=== PATIENT | male | born 2000 | race Caucasian/White ===

== ENCOUNTER 2024-06-29 16:18 | Observation (INO) ==
--- NOTE | 2024-06-29 17:22 | XRay Report ---
Chest radiograph, one view History: Chest pain Comparison: 02/22/2023 Findings: Single AP view of the chest performed. No focal consolidation or pleural effusion. No pneumothorax. The cardiomediastinal silhouette is within normal limits. Normal pulmonary vascularity. No evidence for lymphadenopathy. No visualized bony or soft tissue abnormality. Impression: Normal chest radiograph Electronically signed by Aneesh Weiss 06-29-2024 5:22 PM
[2024-06-29 18:23] LABS: Basophils # (auto) 0.02 K/uL (0.00-0.20); Basophils % (auto) 0.3 %; Eosinophils # (auto) 0.08 K/uL (0.00-0.50); Eosinophils % (auto) 1.2 %; Hemoglobin 17.6 g/dl (14.0-18.0); Immature Granulocytes # (auto) 0.02 K/uL (0.01-0.20); Immature Granulocytes % (auto) 0.3 %; Lymphocytes # (auto) 1.43 K/uL (1.20-3.40); Lymphocytes % (auto) 21.6 %; Mean Corpuscular Hemoglobin 28.8 pg (25.0-34.0); Mean Corpuscular Hgb Conc 34.5 g/dL (32.0-36.0); Mean Corpuscular Volume 83.3 fL (80.0-100.0); Mean Platelet Volume 10.4 fL (9.4-12.4); Monocytes % (auto) 6.1 %; Neutrophils # (auto) 4.66 K/uL (1.40-6.50); Neutrophils % (auto) 70.5 %; Platelet Count 285 K/uL (130-400); RDW Coefficient of Variation 12.6 % (11.5-14.5); RDW Standard Deviation 38.3 fL (36.4-46.3); Red Blood Count 6.12 M/uL (4.70-6.10); White Blood Count 6.61 K/ul (4.8-10.8)
[2024-06-29 18:34] LABS: Albumin Globulin Ratio 1.6 (0.9-2); Albumin Level 5.1 gm/dl (3.4-5.0); BUN Creatinine Ratio 9.6 (10-20); Bilirubin,Total 0.8 mg/dl (0.2-1.0); Calcium 9.7 mg/dl (8.6-10.3); Creatinine Clr Calc Pharmacy 133.7 ml/min; Globulin 3.2 gm/dl (2.5-4.0); Potassium 3.8 mmol/L (3.5-5.1); Total Protein 8.3 gm/dl (6.0-8.3)
[2024-06-29 18:47] LABS: D Dimer 380 ug/L FEU (0-500)
[2024-06-29 19:18] LABS: Troponin I High Sensitivity 29.8 pg/ml (0-20)
--- NOTE | 2024-06-29 19:52 | Emergency Department Note ---
History of Present Illness General Chief Complaint: Illness Stated Complaint: CHEST PAIN Time Seen by Provider: 06/29/24 17:29 History of Present Illness Provider Complaint: shortness of breath and chest pain Onset (ago): day(s) (2) Severity: moderate Consistency/Duration: + intermittent Relieved By: + nothing Exacerbated By: + inspiration Context: no recent illness, no allergen exposure, no recent travel or no trauma/injury Associated symptoms: no cough, no wheezing, no sputum production, no palpitations, no hemoptysis, no nausea/vomiting or no chest congestion HPI Narrative: Patient reports he had a similar episode that occurred in 2022 and was told that his troponin test was elevated. Home Medications Medication Instructions Recorded Confirmed Type albuterol sulfate 90 mcg/actuation 2 puff inhalation . EVERY 4 TO 6 06/29/24 06/29/24 History aerosol inhaler HOURS PRN Shortness Of Breath Or Wheezing multivitamin 1 tab PO QAM 06/29/24 06/29/24 History Allergies Allergy/AdvReac Type Severity Reaction Status Date / Time ibuprofen [From Motrin] AdvReac Mild LIQUID Verified 06/29/24 19:37 FORM-VOMITING Past Med/Surg History Problem List (Updated 06/29/24 @ 21:33 by Daniele Patel MD) Elevated troponin (Acute) Dyspnea (Acute) Chest pain (Acute) Medical History No pertinent family history No chronic diseases present Surgical History No significant past surgical history Social History Smoking Status: Former smoker Tobacco Type: Cigars Preferred Language: Sinhala Feels Safe at Home: Yes Physical Exam 2 Vital Signs: Vital Signs - 24 hr 06/29/24 16:34 06/29/24 18:07 06/29/24 19:00 Temperature 36.8 C Temperature Source Oral Pulse Rate 89 83 78 Pulse Rate from Sp O2 Sensor Pulse Rhythm Regular Pulse Strength Normal Respiratory Rate 18 16 Respiratory Effort / Characteristics Non-Labored Sponta neous Respiratory Depth Normal Respiratory Patter n Regular Blood Pressure 139/80 112/64 Blood Pressure Sunshine n 99 80 Blood Pressure Pos ition Sitting Pulse Oximetry 97 99 Oxygen Delivery Me thod Room Air Room Air Sepsis Recent Feve r Within 48 Hours No Sepsis New/Unexpla ined Change in Men anderson Status N/A Sepsis Action Take n by Nursing No Action Required 06/29/24 20:00 06/29/24 21:00 Temperature Temperature Source Pulse Rate 71 74 Pulse Rate from Sp O2 Sensor 71 74 Pulse Rhythm Pulse Strength Respiratory Rate 17 15 Respiratory Effort / Characteristics Respiratory Depth Respiratory Patter n Blood Pressure 110/61 91/66 L Blood Pressure Sunshine n 80 74 Blood Pressure Pos ition Pulse Oximetry 99 98 Oxygen Delivery Me thod Room Air Room Air Sepsis Recent Feve r Within 48 Hours Sepsis New/Unexpla ined Change in Men anderson Status Sepsis Action Take n by Nursing Physical Exam: Physical Exam GENERAL: oriented to person, place, and time. appears well-developed and well- nourished. HENT: Exam performed. - Head: Normocephalic and atraumatic. EYES: Conjunctivae and EOM are normal. Right eye exhibits no discharge. Left eye exhibits no discharge. No scleral icterus. NECK: Normal range of motion. Neck supple. No JVD present. CV: Normal rate, regular rhythm, normal heart sounds and intact distal pulses. There is no peripheral edema. Palpable radial pulses bue. PULM/CHEST: Effort normal and breath sounds normal. No respiratory distress. No stridor. no wheezes. no rales. ABD: The abdomen is soft. There is no tenderness. NEURO: Motor and sensation grossly intact. SKIN: Skin is warm and dry. He is not diaphoretic. PSYCH: normal mood and affect. Behavior is normal. Judgment and thought content normal. Course Course 1728: The patient was evaluated in room . A complete history and physical exam was performed Cardiac monitoring: An order was placed for continuous cardiac monitoring. The monitor shows a rate of 90 with sinus rhythm interpreted by me External medical records reviewed. Patient was seen 2022 and had a high- sensitivity troponin of 17 and then 20. 1953: Vital signs stable. High-sensitivity troponin is elevated at 29.8. Labs and imaging are otherwise unremarkable including a negative D-dimer. Discussed case with on-call cardiology Dr. Irene. Delta troponin is pending. He states that if there is no significant increase in the patient's delta troponin the patient can follow-up outpatient. If there is a significantly increase in the patient's delta troponin the patient will be admitted to the hospitalist team. Patient is in agreement with the plan. 2131: Patient not reporting a chest pain at this time. Delta troponin came back elevated at 34.4, almost a 20% increase. Patient denies any recreational drug use. No cocaine. Patient states he never followed up with cardiology after his last visit to the emergency department. Discussed case with Dr. Agustín Cantor hospitalist team to evaluate the patient for admission for the patient to be admitted and be evaluated by cardiology and have an echo completed. Medical Decision Making Laboratory Data Attestation: I reviewed the patient's lab results. 06/29/24 17:50 06/29/24 17:50 Lab Results 06/29/24 06/29/24 Range/Units 17:50 20:18 WBC 6.61 (4.8-10.8) K/ul RBC 6.12 H (4.70-6.10) M/uL Hgb 17.6 (14.0-18.0) g/dl Hct 51.0 (42.0-52.0) % MCV 83.3 (80.0-100.0) fL MCH 28.8 (25.0-34.0) pg MCHC 34.5 (32.0-36.0) g/dL RDW Std Deviation 38.3 (36.4-46.3) fL RDW Coeff of James 12.6 (11.5-14.5) % Plt Count 285 (130-400) K/uL MPV 10.4 (9.4-12.4) fL Immature Gran % (Auto) 0.3 % Neut % (Auto) 70.5 % Lymph % (Auto) 21.6 % [place] % (Auto) 6.1 % Eos % (Auto) 1.2 % Baso % (Auto) 0.3 % Neut # (Auto) 4.66 (1.40-6.50) K/uL Lymph # (Auto) 1.43 (1.20-3.40) K/uL [place] # (Auto) 0.40 (0.11-0.59) K/uL Eos # (Auto) 0.08 (0.00-0.50) K/uL Baso # (Auto) 0.02 (0.00-0.20) K/uL Immature Gran # (Auto) 0.02 (0.01-0.20) K/uL D-Dimer 380 (0-500) ug/L FEU Sodium 139 (136-145) mmol/L Potassium 3.8 (3.5-5.1) mmol/L Chloride 104 (98-107) mmol/L Carbon Dioxide 28 (21-32) mmol/L Anion Gap 7 (3-11) BUN 9 (6-23) mg/dl Creatinine 0.94 (0.6-1.4) mg/dl Est Cr Clr Drug Dosing 133.7 ml/min eGFR 117.54 BUN/Creatinine Ratio 9.6 L (10-20) Glucose 90 (70-99(Fasting)) mg/dl Calcium 9.7 (8.6-10.3) mg/dl Total Bilirubin 0.8 (0.2-1.0) mg/dl AST 22 (13-39) U/L ALT 22 (7-52) U/L Alkaline Phosphatase 80 (34-104) U/L Troponin I High Sens 29.8 H 34.4 H (0-20) pg/ml Total Protein 8.3 (6.0-8.3) gm/dl Albumin 5.1 H (3.4-5.0) gm/dl Globulin 3.2 (2.5-4.0) gm/dl Albumin/Globulin Ratio 1.6 (0.9-2) Lipase 17 (11-82) U/L Imaging Data Attestation: I personally reviewed and interpreted this imaging study as follows: My Impression: Chest x-ray negative. Airway clear. No pneumothorax. No consolidation. No cardiomegaly or cephalization.. No free air under the diaphragm. No fractures of the skeletal structures. Radiologist's Impression: Chest X-Ray 06/29/24 16:37 Chest radiograph, one view History: Chest pain Comparison: 02/22/2023 Findings: Single AP view of the chest performed. No focal consolidation or pleural effusion. No pneumothorax. The cardiomediastinal silhouette is within normal limits. Normal pulmonary vascularity. No evidence for lymphadenopathy. No visualized bony or soft tissue abnormality. Impression: Normal chest radiograph Electronically signed by Aneesh Weiss 06-29-2024 5:22 PM ECG Data Attestation: I personally reviewed and interpreted this ECG as follows: Interpretation: Sinus rhythm with a rate of 92. MT QRS and QTc intervals within normal limits. No ST ovation or ST depression. [facility] Narrative 1728: The patient was evaluated in room . A complete history and physical exam was performed Cardiac monitoring: An order was placed for continuous cardiac monitoring. The monitor shows a rate of 90 with sinus rhythm interpreted by me External medical records reviewed. Patient was seen 2022 and had a high- sensitivity troponin of 17 and then 20. 1953: Vital signs stable. High-sensitivity troponin is elevated at 29.8. Labs and imaging are otherwise unremarkable including a negative D-dimer. Discussed case with on-call cardiology Dr. Irene. Delta troponin is pending. He states that if there is no significant increase in the patient's delta troponin the patient can follow-up outpatient. If there is a significantly increase in the patient's delta troponin the patient will be admitted to the hospitalist team. Patient is in agreement with the plan. 2131: Patient not reporting a chest pain at this time. Delta troponin came back elevated at 34.4, almost a 20% increase. Patient denies any recreational drug use. No cocaine. Patient states he never followed up with cardiology after his last visit to the emergency department. Discussed case with Dr. Agustín Cantor hospitalist team to evaluate the patient for admission for the patient to be admitted and be evaluated by cardiology and have an echo completed. Impression & Plan Chest pain, Dyspnea, Elevated troponin Discharge Plan Visit Data Chief Complaint: Illness Stated Complaint: CHEST PAIN ED Provider: Daniele Patel Discharge Problem: Chest pain, Dyspnea, Elevated troponin Patient Disposition: Being Evaluated by Hospitalist Forms Stand Alone Forms: alaTest Prescriptions Prescriptions: No Action multivitamin Tablet 1 tab PO QAM albuterol sulfate 90 mcg/actuation HFA aerosol inhaler 2 puff INHALATION . EVERY 4 TO 6 HOURS PRN (Reason: Shortness Of Breath Or Wheezing) Referrals Referrals: [place] [Primary Care Provider] - Discharge Problem: Chest pain Qualifiers: Chest pain type: unspecified Qualified Code(s): R07.9 - Chest pain, unspecified
--- NOTE | 2024-06-29 21:43 | History & Physical Report ---
Date of Service June 29, 2024 Assessment & Plan (1) Chest pain: (2) Dyspnea: (3) Elevated troponin: Plan Patient is a 24 yo M w/ a PMHx of CP/elevated troponin, possibly exercise- induced asthma, no FamHx that patient is aware of, who is presenting today with 2-day Hx of CP, dyspnea. 1) Chest pain/dyspnea - CXR: normal radiograph w/out evidence of pneumothorax, pleural effusions, or focal consolidation; EKG: NSR - HSTrop, 29.8 --> 34.4 - TTE ordered, routine; Cardiology consulted, routine - CMP, CBC, D-dimer upon admission WNL; FluA/FluB/COVID/RSV, neg; possible anxiety component to CP also - AM BMP, Mg, and HSTrop ordered - last Lipid panel: TChol, 197; LDL 137; HDL, 38; TG 109 (Aug, 2023) Chronic conditions #exercise-induced asthma - continue albuterol #Type 1 obesity Code status: Full code Disposition: Med-tele VTE Prophylaxis: self-ambulation FENGI: Regular diet, no fluids History of Present Illness Chief Complaint: chest pain Primary Care Provider: [email or web address] Patient is a 24 yo M w/ a PMHx of CP/elevated troponin, possibly exercise- induced asthma, no FamHx that patient is aware of, who is presenting today with 2-day Hx of CP, dyspnea. Patient had just come back from a 30 min jog/walk on the treadmill and noticed the next morning he was experiencing CP and dyspnea that didn't seem to be well resolved well the albuterol. He noted a particularly sharp stabbing episode of CP when getting off the bus that lasted for only a few seconds. Patient denies use of any supplements, states that he only takes a multivitamin. 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 Has not talked to his PCP at [facility] about receiving anti-anxiety treatment before. Last lipid panel (09/08/2023) resulted in a TChol, 197 LDL 137 HDl 38 TG 109. Patient noted that he had seen a provider previously that diagnosed him with presumptive exercise-induced asthma, due to the fact he often would get the chest pain/tightness upon exercising, had previously been seen in the ED with only mild elevation in HS Troponins and that his symptoms seemed to improve when using albuterol. Allergies Allergy/AdvReac Type Severity Reaction Status Date / Time ibuprofen [From Motrin] AdvReac Mild LIQUID Verified 06/29/24 19:37 FORM-VOMITING Home Medications Medication Instructions Recorded Confirmed Type albuterol sulfate 90 mcg/actuation 2 puff inhalation . EVERY 4 TO 6 06/29/24 06/29/24 History aerosol inhaler HOURS PRN Shortness Of Breath Or Wheezing multivitamin 1 tab PO QAM 06/29/24 06/29/24 History Past Med/Surg History Problem List (Updated 06/29/24 @ 21:33 by Daniele Patel MD) Elevated troponin (Acute) Dyspnea (Acute) Chest pain (Acute) Medical History No pertinent family history No chronic diseases present Surgical History No significant past surgical history Social History Smoking Status: Former smoker Tobacco Type: Cigarettes Second Hand Exposure: No; Do You Dip or Chew Tobacco: No; Tobacco Cessation Education Requested by Patient: No Hx Alcohol Use: Yes Alcohol type: beer Hx Substance Use: No Preferred Language: Nepalese Communication Ability: Effective Color Control Operator Required: No Beliefs That Will Affect Care: None Current Living Situation: Family Feels Safe at Home: Yes Safety Concerns: Feels Safe At This Time Review of Systems Constitutional: no fever, no chills and no fatigue Respiratory: + dyspnea (mild dyspnea, felt w/ deep in spiration); no cough, no hemoptysis and no wheezing Cardiovascular: + chest pain and + dyspnea on exertion; no palpitations Gastrointestinal: no abdominal pain, no nausea, no vomiting and no constipation Genitourinary: no dysuria or no urinary frequency Physical Exam Constitutional: WD/WN, vitals as above Respiratory: normal respiratory effort, lungs clear to auscultation Cardiovascular: RRR, no murmur, no edema Gastrointestinal (Abdomen): normal bowel sounds, soft, nontender, no hepatosplenomegaly Psychiatric: A+Ox3, euthymic affect Affect: euthymic affect Mood: + anxious mood (pt notes anxiety d/t law school apps) Results & Data Results & Data Vital Signs (Past 12 Hours) Vital Signs Temp Pulse Resp BP Pulse Ox O2 Del Method 06/29/24 21:00 74 15 91/66 L 98 Room Air 06/29/24 20:00 71 17 110/61 99 Room Air 06/29/24 19:00 78 16 112/64 99 Room Air 06/29/24 18:07 83 06/29/24 16:34 36.8 C 89 18 139/80 97 Room Air Supervising Physician Co-Signing Physician Notes Patient seen and examined, chart reviewed, case discussed with Dr. Espinal and I agree with the assessment and plan as documented above. In brief, patient is a 24-year-old male with no significant past medical history presenting with chest pain, elevated troponin. Patient presented similarly in the past. Has not seen cardiology Presently without chest pain. Troponin mildly elevated 29.8-34.4 EKG with no acute ischemic changes No recent illness or vaccinations On physical exam patient is afebrile, hemodynamically stable, no acute distress Skinwarm, dry, intact, no rashes HEENTmoist mucous membranes, neck supple Heart+ S1, S2, regular, no murmur/rub/gallops, no reproducible chest wall tenderness LungsCTA no rales/rhonchi/wheezes Abdomensoft, nontender, nondistended Extremitieswarm, well-perfused with no clubbing/cyanosis or edema Labs and images reviewed Assessment/plan Continue to trend troponin Check 2D echo Cardiology consult appreciated Remainder of plan as above Cardiology consultation appreciated (1) Chest pain Chest pain type: unspecified Qualified Code(s): R07.9 - Chest pain, unspecified
[2024-06-29] MEDS ORDERED: ACETAMINOPHEN 325 MG TAB PO PRN (22:08)
[2024-06-29] MEDS ORDERED: ONDANSETRON INJ 2 MG/ML 2 ML VIAL IV PRN (22:08)
[2024-06-29 23:09] LABS: Influenza A virus by PCR Negative (Neg); Influenza B virus by PCR Negative (Neg); RSV by PCR Negative (Neg); SARS CoV2 RNA(COVID-19) Ceph NEGATIVE (Negative)
[2024-06-29] MEDS ORDERED: ALBUTEROL HFA 8 GM INHALER INH PRN (23:57)
--- NOTE | 2024-06-30 03:41 | Billing Data ---
Date of Service June 29, 2024 Coding Level of Care Code 34797 INT INP/OBS CARE
[2024-06-30 06:42] LABS: BUN Creatinine Ratio 10.2 (10-20); Calcium 8.8 mg/dl (8.6-10.3); Creatinine Clr Calc Pharmacy 127.8 ml/min; Magnesium 2.1 mg/dl (1.7-2.4); Potassium 3.8 mmol/L (3.5-5.1)
[2024-06-30 06:49] LABS: Troponin I High Sensitivity 33.3 pg/ml (0-20)
[2024-06-30 08:08] VITALS: PULSE 66; RESP 16; TEMP 97.9; O2SAT 96
[2024-06-30] MEDS: MULTIVITAMIN TAB PO SCH (08:43)
--- NOTE | 2024-06-30 08:47 | Electrocardiogram Report ---
Test Reason : Blood Pressure : */* mmHG Vent. Rate : 92 BPM Atrial Rate : 92 BPM P-R Int : 122 ms QRS Dur : 90 ms QT Int : 330 ms P-R-T Axes : 77 49 46 degrees QTcB Int : 408 ms Normal sinus rhythm Normal ECG When compared with ECG of 22-Feb-2023 23:08, No significant change was found Confirmed by Aneesh Weems ([id number]) on 06/30/2024 8:47:28 AM Referred By: REFERRED SELF Confirmed By: Aneesh Weems
--- NOTE | 2024-06-30 11:38 | XCELERA ---
[id number]
[2024-06-30 12:25] VITALS: BP 97/61
--- NOTE | 2024-06-30 13:01 | Discharge Summary ---
Date of Service June 30, 2024 Admission HPI Per Admitting Provider Patient is a 24 yo M w/ a PMHx of CP/elevated troponin, possibly exercise- induced asthma, no FamHx that patient is aware of, who is presenting today with 2-day Hx of CP, dyspnea. Patient had just come back from a 30 min jog/walk on the treadmill and noticed the next morning he was experiencing CP and dyspnea that didn't seem to be well resolved well the albuterol. He noted a particularly sharp stabbing episode of CP when getting off the bus that lasted for only a few seconds. Patient denies use of any supplements, states that he only takes a multivitamin. Patient does note some increased anxiety recently with the LS[employer] and [employer] school applications. Has not talked to his PCP at [facility] about receiving anti-anxiety treatment before. Last lipid panel (09/08/2023) resulted in a TChol, 197 LDL 137 HDl 38 TG 109. Patient noted that he had seen a provider previously that diagnosed him with presumptive exercise-induced asthma, due to the fact he often would get the chest pain/tightness upon exercising, had previously been seen in the ED with only mild elevation in HS Troponins and that his symptoms seemed to improve when using albuterol. Admission Exam Per Admitting Provider Constitutional: WD/WN, vitals as above Respiratory: normal respiratory effort, lungs clear to auscultation Cardiovascular: RRR, no murmur, no edema Gastrointestinal (Abdomen): normal bowel sounds, soft, nontender, no hepatosplenomegaly Psychiatric: A+Ox3, euthymic affect Affect: euthymic affect Mood: + anxious mood (pt notes anxiety d/t law school apps) Principal Diagnosis dyspnea, chest wall pain, anxiety Discharge Exam Gen: A&Ox3, not appearing in acute distress HEENT: EOM intact, anicteric sclerae, MMM CV: RRR, +s1/s2, no m/r/g Resp: clear to auscultation b/l GI/Abd: +BS, soft, nontender to palpation MSK: no chest wall tenderness to palpation at this time, 5/5 strength in all ext Neuro: no facial droop, speech intact, no focal deficits Discharge Data Allergies Allergy/AdvReac Type Severity Reaction Status Date / Time ibuprofen [From Motrin] AdvReac Mild LIQUID Verified 06/29/24 19:37 FORM-VOMITING Consultations 06/29/24 21:09 ED Decision to Admit Stat Hospital Course (1) Chest pain: (2) Dyspnea: (3) Elevated troponin: Plan Patient is a 24 yo M w/ PMHx of CP/elevated troponin, possibly exercise-induced asthma, no FamHx that patient is aware of, who is presenting today with 2-day Hx of CP, dyspnea. No SOB or chest wall pain today 06/30/24, VSS. 1) Chest pain/dyspnea - CXR: normal radiograph w/out evidence of pneumothorax, pleural effusions, or focal consolidation; EKG: NSR - TTE 06/30/24 unremarkable - CMP, CBC, D-dimer upon admission WNL; FluA/FluB/COVID/RSV, neg; possible anxiety component to CP - all labs WNL, trop peaked at 35 before downtrending this AM 06/30/24 - last Lipid panel: TChol, 197; LDL 137; HDL, 38; TG 109 (Aug, 2023) - as pain could be both MSK and stress-related, discussed techniques to reduce pain caused by both of these MSK: avoid movements that provoke the L chest wall pain, i.e. raising L arm up high for a while before bringing it back down Stress/anxiety: deep breathing techniques, hobbies such as drawing / art, talking walks outside, meditation; may consider discussing SSRI with outpatient provider if anxiety is more generalized Chronic conditions #exercise-induced asthma - continue albuterol as needed #Type 1 obesity Code status: Full code Disposition: Med-tele VTE Prophylaxis: self-ambulation FENGI: Regular diet, no fluids Total Time Total Time Spent Total Time Spent (In Minutes): Vish Hernandes DO, attending physician, spent 25 minutes myself seeing the patient, reviewing the chart, and documenting today. Discharge Plan Discharge Items Patient Disposition: Home - Self-Care Reason For Visit: CHEST PAIN, DYSPNEA Discharge Diagnosis: SOB with transient chest pain, anxiety Activity: Per Instructions section Non-emergency contact: Primary Care Provider Call non-emergency contact if: your symptoms worsen and your pain is not controlled Follow-up/Referrals: [facility] [Primary Care Provider] - Sameer Townsend DO [Resident] - Diet: Regular Addtl Attending Provider Instructions: You were seen and evaluated for 2 days of SOB which woke you up yesterday morning and a few seconds of chest pain later in the day when getting off the bus. You last exercised the day prior for 30min, walking and jogging but you were having any pain or SOB at that time. You came to the ER for concern about persisting SOB and instance of seemingly unprovoked 7-8/10 chest pain. In the ER, your EKG and chest xray were both unremarkable. All of your labs were normal except your troponin, which was only mildly elevated and peaking at 35 before downtrending. You have had no additional instances of SOB or chest pain during your stay in the hospital. You had an echocardiogram which was also unremarkable. You mentioned having some L chest wall pain if you raise your L arm up for a while and bring it back down. This is likely musculoskeletal with potential compression of intercostal nerves. 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 Please consider discussing your stress/anxiety with an outpatient provider as there may be good options such as therapy and/or an SSRI if your anxiety is found to be more generalized. Based on your clinical stability and continued lack of concerning cardiac symptoms, we feel comfortable with your discharge home today. We would like you to follow up on an outpatient basis for the SOB / exercise-induced asthma, likely musculoskeletal chest wall pain, and stress. You may go to [facility], but we encourage you to follow up with a consistent primary care provider - Dr. Townsend and Dr. Lux work at the [facility] office and would be happy to have you follow up there for consistent followup. Phone number is [phone] if you decide to establish care with us. Pending Studies at Discharge: No Stand-Alone Forms: My [employer], Work/School Release, Smoking Cessation Medications and DC Order Prescriptions: Continued multivitamin Tablet 1 tab PO QAM albuterol sulfate 90 mcg/actuation HFA aerosol inhaler 2 puff INHALATION . EVERY 4 TO 6 HOURS PRN (Reason: Shortness Of Breath Or Wheezing) Discharge Orders: Discharge Order (Routine); Ordered 06/30/24 Ordered By: Sameer Alejandra/Other Patient Handouts: Stress Relief: Relaxation, Stress Relief: A Positive Lifestyle, ED Chest Pain, Noncardiac, ED Chest Pain, Uncertain Cause, ED Shortness of Breath (Dyspnea) Admission Data Admit Date/Time: 06/29/24 22:09 Attending Provider: Vish Lux Admit Provider: Aneesh Espinal Primary Care Provider: [facility] Other Providers: Araseli Randolph Other Interventions: Discharge Summary Assessment (RN) Last Done: 06/30/24 12:25 Supervising Physician Co-Signing Physician Notes ATTESTATION I also saw the patient and confirmed [place] portions of the history and exam. I agree with the impression and plan in the resident documentation, and as summar ized below. Patient without complaints this morning. Location of the pain he had prior to presentation was left lateral chest wall. He will sometimes note that he gets this pain if he has his left hand raised in the air (for example, when lying in bed and holding his phone in the air while looking at it). He went jogging for about 1.5 hours earlier this week without chest pain. EXAM VS as noted A/O. NAD HEENT unremarkable CV RRR. Lungs clear with non labored respirations. No pain ACW with palpation. He does have some similar pain after UE strength testing (resisted abduction and other provocative tests of the pectoral muscles)/ DATA Labs Hgb = 17.6 BMP unremarkable Troponin 34.4/33.3 Imaging CXR clear Echocardiogram normal. EKG NSR IMPRESSION & PLAN Chest Wall Pain Dyspnea, resolved Exercise Induced Asthma Pain is reproduced with MSK testing this morning. EKG and echocardiogram are all normal. No risk factors for CAD, and symptoms not consistent with such (he jogged for 90 mins earlier this week without symptoms). Suspect MSK, with dyspnea attributable to anxiety Given resolution of symptoms and normal work-up, OK for discharge and outpatient follow up Additional per resident documentation Resident Activity Tracking Resident Involvement: Resident Care Provided Care Provided: Adult Hospital Medicine
== END 2024-06-30 13:17 | disposition home or self-care (01) ==
LOC: ED 16:18 → 2W 16:18 → SUATTDRO 22:09 → 2W 23:30
DX: J45.909 Unspecified asthma, uncomplicated; R07.9 Chest pain, unspecified; F41.9 Anxiety disorder, unspecified; Z87.891 Personal history of nicotine dependence; Z88.6 Allergy status to analgesic agent; E66.9 Obesity, unspecified; Z68.33 Body mass index [BMI] 33.0-33.9, adult